=== PATIENT | male | born 1960 | race Caucasian/White ===

== ENCOUNTER 2025-05-16 07:55 | Observation (INO) ==
--- NOTE | 2025-05-16 08:04 | Emergency Department Note ---
Impression & Plan Lower back pain, Bilateral leg weakness, Abnormal magnetic resonance imaging of lumbar spine ED Provider Note NAME: MORE RANDOLPH AGE: 64 SEX: M : 1960 ARRIVES VIA: Walk-In INFORMANT: [Patient] ED PROVIDER(S): [Chava Ambriz MD] CHIEF COMPLAINT: Back pain HISTORY OF PRESENT ILLNESS: The patient is a 64-year-old male with 4 weeks of back pain. He complained of weakness and numbness in his legs and radiation of pain down his legs. He had fallen a few times. The patient was seen yesterday in the ED and workup did demonstrate possible lumbar bony metastases. No large disc herniation seen, no severe spinal stenosis by MRI. Admission to the hospital for further workup was advised however, the patient did refuse to stay. He asked for discharge home. He planned on returning today to hopefully see the spinal surgeon as the spinal surgeon was doing his morning rounds. No new complaints or changing complaints today. He is using his walker given yesterday to help with ambulation. PMHx/PSHx/Social Hx: See Below PHYSICAL EXAM: GENERAL: Patient is in no acute distress. HEENT: No acute trauma, normocephalic atraumatic, mucous membranes moist, no nasal congestion. NECK: No stridor, no adenopathy, no meningismus, trachea is midline. LUNGS: Clear to auscultation bilaterally, no wheeze, no rhonchi, breath sounds equal. HEART: Without murmurs gallops or rubs, regular rate and rhythm. ABDOMEN: Soft, nontender, no peritonitis. EXTREMITIES: No cyanosis, full range of motion of all the joints without pain or difficulty. NEUROLOGIC: Oriented x 3. There are 2/4 patellar and Achilles reflexes bilaterally. His great toe dorsiflexion is intact and strong bilaterally. The plantarflexion of both feet is strong and intact bilaterally. SKIN: No jaundice, no diaphoresis. DIFFERENTIAL DIAGNOSIS: Lumbar strain, malignancy, disc herniation, cauda equina syndrome, spinal stenosis, among others. EMERGENCY DEPARTMENT PROCEDURES: MEDICAL DECISION MAKING: The patient presents for evaluation because of ongoing back pain, leg weakness and numbness down his legs. He was seen yesterday and his MRI did not show any focal disc disease or area of nerve impingement. Admission for further workup was recommended however, the patient chose discharge to return today to see the spinal surgeon in the ED. Spinal surgery was consulted and did see the patient in the ED. After review of the MRI, there was concern that there may be a more superior lesion in the area of T10 of the thoracic spine. Additional MRI imaging was recommended and admission was again recommended. The patient did consent to a hospital stay and further workup. I did speak with the patient and his family, I did speak with case management. The on-call hospitalist was consulted. An MRI of the thoracic spine was ordered, results pending. Prior/Outside records/notes reviewed: Yesterday's ED note describing his presentation, findings and MRI results. Imaging/x-ray results per my interpretation: Chronic Medical/Social conditions affecting care: None Care/Management discussed with: Spinal surgery-Dr. Delgadillo. Case management and the on-call hospitalist Level of care consideration(s): After review of the information above and other included data: --I believe the patient requires escalation of care to admission DISPOSITION: Admission Past Med/Surg History Problem List (Updated 05/18/25 @ 15:02 by Chava Ambriz MD) Abnormal magnetic resonance imaging of lumbar spine (Acute) Bilateral leg weakness (Acute) Lower back pain (Acute) Prostate cancer Lesion of thoracic spine region Abnormal magnetic resonance imaging of lumbar spine (Acute) Fall (Acute) Bilateral leg weakness (Acute) Lower back pain (Acute) Medical History High cholesterol Social History Smoking Status: Current every day smoker Tobacco Type: Cigarettes Do You Dip or Chew Tobacco: No; Hx Alcohol Use: No Hx Substance Use: No Preferred Language: Occitan Communication Ability: Effective Legal Writing Professor Required: No Beliefs That Will Affect Care: None Current Living Situation: Spouse Feels Safe at Home: Yes Assistive Devices: Glasses and Walker Allergies Allergies Allergy/AdvReac Type Severity Reaction Status Date / Time No Known Allergies Allergy Verified 05/15/25 13:16 Home Meds Home Medications Medication Instructions Recorded Confirmed aspirin 81 mg tablet,delayed 81 mg PO DAILY 06/24/19 05/16/25 release atorvastatin 40 mg tablet 40 mg PO DAILY 06/24/19 05/16/25 Results & Data (ED) Vital Signs Vital Signs - 24 hr 05/16/25 07:57 Temperature 36.5 C Temperature Source Temporal Artery Scan Pulse Rate 69 Respiratory Rate 18 Respiratory Effort / Characteristics Non-Labored Spontaneous Respiratory Depth Normal Blood Pressure 101/66 Blood Pressure Mean 77 Blood Pressure Position Sitting Pulse Oximetry 100 Oxygen Delivery Method Room Air Sepsis Recent Fever Within 48 Hours No Sepsis New/Unexplained Change in Mental Status No Sepsis Action Taken by Nursing No Action Required Home Medications Current Medication List: was personally reviewed by me Laboratory Data 05/17/25 07:39 05/17/25 07:39 Administered Medications Discontinued Medications Gadobutrol (Gadobutrol 30ml Vial) 7 ml IV ONCE ONE Stop: 05/16/25 11:52 Last Admin: 05/16/25 11:52 Dose: 7 ml Documented By: CALEB Sodium Chloride (Nss) 1,000 mls @ 125 mls/hr IV .Q8H ANN Stop: 05/17/25 10:59 Last Infusion: 05/16/25 21:06 Dose: Infused Documented By: Admin: 05/16/25 21:05 Dose: Not Given Documented By: Admin: 05/16/25 12:47 Dose: 125 mls/hr Documented By: TNK Ioversol (Optiray 320 100ml) 92 ml IV ONCE ONE Stop: 05/16/25 15:43 Last Admin: 05/16/25 15:42 Dose: 92 ml Documented By: EDK Imaging Data Radiologist's Impression: Noncontrast lumbar MRI performed on 05/15/2025: Findings: There is 2 mm of retrolisthesis at L1-2 and L5-S1. There is scoliosis. The remainder of the lumbar vertebrae are in normal alignment. There are degenerative endplate changes at L4-5 and L5-S1 and to a lesser extent at other levels. There are numerous osseous lesions of high T2 and low T1 signal intensity, most likely due to metastatic disease. There is associated expansion of the T10 vertebral body. No fracture is identified. There is no definite sign of infection. There is no sign of acute ligamentous injury. The conus medullaris appears normal, terminating at the level of T12-L1. At L1-L2, there is a disc bulge without spinal stenosis. There is left greater than right neural foramen narrowing that may affect the left L1 nerve root At L2-L3, there is mild spinal stenosis due to a disc bulge. There is no visible compression of the traversing nerve roots. There is left greater than right neural foramen narrowing that may affect the exiting L2 nerve roots At L3-L4, there is spinal stenosis due to a disc bulge. The traversing L4 nerve roots are contacted. There is bilateral neural foramen narrowing that may affect the exiting L3 nerve roots At L4-L5, there is mild spinal stenosis due to a disc bulge and a right subarticular disc protrusion that contacts the right L5 nerve root. There is right greater than the left neural foramen narrowing that may affect the right L4 nerve root At L5-S1, there is a disc bulge without spinal stenosis. There is bilateral neural foramen narrowing that may affect the exiting L5 nerve roots. Impression: 1. Numerous osseous lesions, most likely due to metastatic disease 2. Scoliosis 3. Mild retrolisthesis at L1-2 and L5-S1 4. Spinal stenosis at L3-4, which may affect the traversing L4 nerve roots 5. Spinal stenosis at L4-5 with a disc protrusion that contacts the right L5 nerve root 6. Mild spinal stenosis at L2-3, without compression of the traversing nerve roots 7. Neural foramen narrowing from L1-2 through L5-S1, which may affect the exiting nerve roots 8. No sign of fracture or ligamentous injury Discharge Plan Visit Data Chief Complaint: Back Injury/Pain Stated Complaint: SEE THE DOC BACK PAIN ED Provider: Chava Ambriz Discharge Problem: Lower back pain, Bilateral leg weakness, Abnormal magnetic resonance imaging of lumbar spine Patient Disposition: Admitted As Inpatient Condition: Fair Discharge Instructions Interventions: ED Discharge Assessment Last Done: 05/16/25 13:49 Discharge Problem: Lower back pain Qualifiers: Chronicity: unspecified Back pain laterality: midline Sciatica presence: with sciatica Sciatica laterality: bilateral sciatica Qualified Code(s): M54.41 - Lumbago with sciatica, right side; M54.42 - Lumbago with sciatica, left side
[2025-05-16] MEDS ORDERED: HYDROmorphone INJ 0.5 MG/0.5 ML SYR IV PRN (10:48)
--- NOTE | 2025-05-16 10:48 | History & Physical Report ---
Date of Service May 16, 2025 Assessment & Plan (1) Abnormal magnetic resonance imaging of lumbar spine: Plan: 4 weeks of back pain in total with increasing pain 2 weeks associated with radiation of pain to the feet and decrease in ambulation MRI showed numerous osseous less than likely metastatic Multilevel spinal stenosis Differential could be metastatic disease and we will get MRI of the thoracic spine with and without contrast and further testing to find out the primary source Appreciate orthospine input and recommendation Will get CT of the chest and CT of the abdomen pelvis with and without contrast and blood test directing towards finding the cause of primary cancer Will give intravenous pain medications as well as oral As per orthospine if the patient needs any sort of surgical maneuver most likely that should be done in a tertiary care center facility (2) Fall: Plan: Has been falling recently with chest pain and fell x 3 times on Saturday due to back pain and instability in walking (3) Lower back pain: Plan: As above (4) High cholesterol: Plan: Has been on statin and hold off medicine for now Tobacco abuse Strongly advised to quit smoking Counseling will be provided DVT prophylaxis SCDs for now CODE STATUS Full History of Present Illness Chief Complaint: Increasing back pain with numbness involving the legs and feet for the last 2 weeks Primary Care Provider: Laverne Stewart MD He is a 64 years old male with significant past medical history of hyperlipide tevin has been on statin and has been complaining of left pain started initially about 4 weeks before. She has been to chiropractor for that and has had manipulation and also received prednisone to control the pain. For the last 2 weeks the pain has been worse that he has been having problem with ambulation and at times he has to use walker to ambulate. The pain has been in the lower back and sometimes radiates to the legs and he cannot feel it feet in the lower leg and recently has had occasional issues with urination. He denies any significant weakness involving the legs. He was seen in the ER yesterday and has had a lumbar spine MRI which showed multiple lesions involving the spine and he did not want to stay in the hospital. His pain is worse today and he is back with increasing pain but no other new symptoms. He is a smoker and continues to smoke till now. He denies any numbness or tingling involving the upper extremities and he again does not have any urine and/or bowel problems. His examination did not show any localized tenderness at the back and minimal decrease in power involving the legs on both sides. He was seen by orthospine in the emergency room and will have further testing to find out the cause for the spinal lesions. Allergies Allergy/AdvReac Type Severity Reaction Status Date / Time No Known Allergies Allergy Verified 05/15/25 13:16 Home Medications Medication Instructions Recorded Confirmed Type aspirin 81 mg tablet,delayed 81 mg PO DAILY 06/24/19 05/16/25 History release atorvastatin 40 mg tablet 40 mg PO DAILY 06/24/19 05/16/25 History Past Med/Surg History Problem List Abnormal magnetic resonance imaging of lumbar spine (Acute) Fall (Acute) Bilateral leg weakness (Acute) Lower back pain (Acute) Medical History High cholesterol Social History Smoking Status: Current every day smoker Tobacco Type: Cigarettes Preferred Language: Pashto Feels Safe at Home: Yes Review of Systems Review of Systems: All systems reviewed and are unremarkable except as noted below Physical Exam Physical Exam: Sitting on a chair and in distress due to ongoing back pain Constitutional: + ill appearing and average body habitus Eyes: PERRL, conjunctivae normal, anicteric sclerae ENMT: external ear and nose normal, oropharynx normal Neck: trachea midline, no thyromegaly Respiratory: no respiratory distress Auscultation: lungs clear to auscultation bilaterally Cardiovascular: Rate/Rhythm: regular rate and regular rhythm; not tachycardic Heart Sounds: normal S1 and normal S2; no murmur Extremities: no edema Gastrointestinal (Abdomen): Inspection/Auscultation: normal bowel sounds; abdomen not distended Percussion/Palpation: abdomen soft; abdomen nontender Musculoskeletal: No acute arthritis involving any of the joint. No tender spots in the spine Neurologic: normal touch/pain/proprioception and moves all extremities; no focal motor deficits Lymphatic: no cervical or axillary lymphadenopathy Results & Data Results & Data Vital Signs (Past 12 Hours) Vital Signs Temp Pulse Resp BP Pulse Ox O2 Del Method 05/16/25 07:57 36.5 C 69 18 101/66 100 Room Air Code Status & VTE Plan VTE Prophylaxis Plan VTE Prophylaxis will be ordered: Yes (2) Fall Encounter type: initial encounter Qualified Code(s): W19.XXXA - Unspecified fall, initial encounter (3) Lower back pain Back pain laterality: midline Chronicity: unspecified Sciatica laterality: bilateral sciatica Sciatica presence: with sciatica Qualified Code(s): M54.41 - Lumbago with sciatica, right side; M54.42 - Lumbago with sciatica, left side
--- NOTE | 2025-05-16 10:57 | Orthopedic Consultation ---
Date of Service May 16, 2025 Assessment & Plan (1) Lower back pain: (2) Bilateral leg weakness: (3) Abnormal magnetic resonance imaging of lumbar spine: (4) Lesion of thoracic spine region: History of Present Illness Reason for Consultation: Low back pain, metastatic lesions noted on MRI. Requesting Physician: . 64 years old male with significant past medical history of hyperlipidemia has been on statin and has been complaining of left pain started initially about 4 weeks before. She has been to chiropractor for that and has had manipulation and also received prednisone to control the pain. For the last 2 weeks the pain has been worse that he has been having problem with ambulation and at times he has to use walker to ambulate. The pain has been in the lower back and sometimes radiates to the legs and he cannot feel it feet in the lower leg and recently has had occasional issues with urination. He denies any significant weakness involving the legs. He was seen in the ER yesterday and has had a lumbar spine MRI which showed multiple lesions involving the spine and he did not want to stay in the hospital. His pain is worse today and he is back with increasing pain but no other new symptoms. He is a smoker and continues to smoke till now. He denies any numbness or tingling involving the upper extremities and he again does not have any urine and/or bowel problems. His examination did not show any localized tenderness at the back and minimal decrease in power involving the legs on both sides. He was seen by orthospine in the emergency room and will have further testing to find out the cause for the spinal lesions. 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 He relates his main pain is in the lower lumbosacral region, and he will have numbness which will radiate just to the hip region on either side but not noticing specific radicular symptoms in the lower extremities. Examination reveals the patient to be nontender to palpation over the thoracic and cervical spine, no pain noted also on palpation of the spinous processes at the thoracolumbar junction, main area of pain indicated lumbosacral junction but minimally reproduced with any type of palpation. Patient had what I thought was symmetric 5/5 strength for EHL, ankle plantar dorsiflexion, knee flexion extension strength, hip flexion extension strength. Reflexes were symmetric at 2/4 for both knees, 1/4 for the left ankle, trace for the right ankle. Negative straight leg raise except for limited amount of low back pain. MRI images of the lumbar spine from May 15, 2025 Clinical History: Pain and numbness after falls Technique: Sagittal and axial T1 and T2-weighted magnetic resonance images were obtained of the lumbar spine without gadolinium contrast. Findings: There is 2 mm of retrolisthesis at L1-2 and L5-S1. There is scoliosis. The remainder of the lumbar vertebrae are in normal alignment. There are degenerative endplate changes at L4-5 and L5-S1 and to a lesser extent at other levels. There are numerous osseous lesions of high T2 and low T1 signal intensity, most likely due to metastatic disease. There is associated expansion of the T10 vertebral body. No fracture is identified. There is no definite sign of infection. There is no sign of acute ligamentous injury. The conus medullaris appears normal, terminating at the level of T12-L1. At L1-L2, there is a disc bulge without spinal stenosis. There is left greater than right neural foramen narrowing that may affect the left L1 nerve root At L2-L3, there is mild spinal stenosis due to a disc bulge. There is no visible compression of the traversing nerve roots. There is left greater than right neural foramen narrowing that may affect the exiting L2 nerve roots At L3-L4, there is spinal stenosis due to a disc bulge. The traversing L4 nerve roots are contacted. There is bilateral neural foramen narrowing that may affect the exiting L3 nerve roots At L4-L5, there is mild spinal stenosis due to a disc bulge and a right subarticular disc protrusion that contacts the right L5 nerve root. There is right greater than the left neural foramen narrowing that may affect the right L4 nerve root At L5-S1, there is a disc bulge without spinal stenosis. There is bilateral neural foramen narrowing that may affect the exiting L5 nerve roots. Impression: 1. Numerous osseous lesions, most likely due to metastatic disease 2. Scoliosis 3. Mild retrolisthesis at L1-2 and L5-S1 4. Spinal stenosis at L3-4, which may affect the traversing L4 nerve roots 5. Spinal stenosis at L4-5 with a disc protrusion that contacts the right L5 nerve root 6. Mild spinal stenosis at L2-3, without compression of the traversing nerve roots 7. Neural foramen narrowing from L1-2 through L5-S1, which may affect the exiting nerve roots 8. No sign of fracture or ligamentous injury Reviewed MRI images lumbar spine from May 15, 2025, no previous imaging available, this is my separate interpretation, this reveals the degenerative changes as noted, no high-grade areas of stenosis, some foraminal narrowing evident. Numerous lesions indicating metastatic lesions present, of note is at T10 there is spinal stenosis with what may be even cord changes, not adequately evaluated with this study. Impression: 1 month history of low back pain initially mechanical in nature, but then developing neural compressive symptoms in the lower extremities, mostly low back pain is the main complaint. MRI revealing numerous lesions suspicious of metastatic process and also what appears to be significant metastatic involvement involving T10 not adequately evaluated at this point. Recommendations: [facility] the patient needs additional imaging, thoracic and cervical MRIs with and without contrast, also CT scan imaging. I related that I think there is developing significant stenosis at T10 at the least, and this is causing the lower extremity symptoms. Diagnosis of metastatic lesions imperative along with the appropriate treatment relative to the developing process involving the T10 level at least, this may require surgical intervention at some point. Will continue to follow relative to the upcoming evaluations for diagnosing the primary. Allergies Allergy/AdvReac Type Severity Reaction Status Date / Time No Known Allergies Allergy Verified 05/15/25 13:16 Home Medications Medication Instructions Recorded Confirmed Type aspirin 81 mg tablet,delayed 81 mg PO DAILY 06/24/19 05/16/25 History release atorvastatin 40 mg tablet 40 mg PO DAILY 06/24/19 05/16/25 History Past Med/Surg History Problem List (Updated 05/16/25 @ 11:06 by George Delgadillo MD) Lesion of thoracic spine region Abnormal magnetic resonance imaging of lumbar spine (Acute) Fall (Acute) Bilateral leg weakness (Acute) Lower back pain (Acute) Medical History High cholesterol Social History Smoking Status: Current every day smoker Tobacco Type: Cigarettes Preferred Language: Latvian Feels Safe at Home: Yes Review of Systems All systems reviewed & are unremarkable except as noted in HPI & below. Physical Exam . Results & Data Results & Data Laboratory Results . Diagnostic Findings . PG Care Time/CCT Total # of Minutes Spent Total Time Spent with Patient: Total time spent is greater than 50% in coordination of care (as documented) at patient's floor/unit and/or counseling patient: Coding Level of Care Code 38060 IN/OBS CONSULT LVL 4,60M Diagnoses Lower back pain M54.41; M54.42 Back pain laterality: midline Chronicity: unspecified Sciatica laterality: bilateral sciatica Sciatica presence: with sciatica Bilateral leg weakness R29.898 Abnormal magnetic resonance imaging of lumbar spine R93.7 Lesion of thoracic spine region M89.9 (1) Lower back pain Back pain laterality: midline Chronicity: unspecified Sciatica laterality: bilateral sciatica Sciatica presence: with sciatica Qualified Code(s): M54.41 - Lumbago with sciatica, right side; M54.42 - Lumbago with sciatica, left side
[2025-05-16 11:33] LABS: Alanine Aminotransferase 7.0 U/L (7-52); Albumin Globulin Ratio 1.2 (0.9-2); Alkaline Phosphatase 225.0 U/L (34-104); Anion Gap 7.0 (3-11); Bilirubin,Total 0.6 mg/dl (0.2-1.0); Blood Urea Nitrogen 20.0 mg/dl (6-23); Calcium 9.5 mg/dl (8.6-10.3); Carbon Dioxide 29.0 mmol/L (21-32); Chloride 100.0 mmol/L (98-107); Creatinine Clr Calc Pharmacy 83.0 ml/min; Globulin 3.3 gm/dl (2.5-4.0); Glucose 103.0 mg/dl (70-99(Fasting)); Potassium 3.7 mmol/L (3.5-5.1); Sodium 136.0 mmol/L (136-145); Total Protein 7.3 gm/dl (6.0-8.3)
[2025-05-16 11:43] LABS: Prostate SpecificAg Diagnostic 52.903 ng/ml (0-4)
--- NOTE | 2025-05-16 11:43 | XRay Report ---
XR chest 2V PA/lateral CLINICAL HISTORY: r/o yuki COMPARISON STUDY: None FINDINGS: Heart size and pulmonary vasculature are normal. No consolidation or pleural effusion seen. No pneumothorax. IMPRESSION: No acute findings. ACT 112: Negative or not required by law. Electronically signed by: Faraz Devlin M.D. 05/16/2025 11:41 AM
[2025-05-16 11:46] LABS: Thyroid Stimulating Hormone 1.746 uIu/ml (0.300-4.500)
[2025-05-16] MEDS: GADOBUTROL 30ML VIAL IV ONE (11:52)
--- NOTE | 2025-05-16 12:23 | Magnetic Resonance Report ---
MR thoracic spine wo/w con CLINICAL HISTORY: back and leg pain, mets COMPARISON STUDY: Lumbar spine of 05/15/2025 FINDINGS: There is abnormal low T1 and T2 signal and enhancement at the C7, T9, T10, and T11 vertebra l bodies consistent with osseous metastatic disease. Thoracic spinal cord has normal signal and conto ur with no abnormal enhancement. No acute fracture or subluxation seen. The mass occupying the T10 vertebral body extends beyond the borders of the vertebral body and causes moderate central canal narrowing with complete effacement of the thecal sac and mild cord compressio n at that level. There is also moderate bilateral neural foraminal narrowing due to the mass at that level. No other significant central canal or neural foraminal narrowing seen at the thoracic spine. IMPRESSION: 1. Osseous metastatic disease as described. 2. Vertebral body mass at T10 causes central canal narrowing with mild cord compression at that level . ACT 112: Negative or not required by law. Electronically signed by: Faraz Devlin M.D. 05/16/2025 12:20 PM
[2025-05-16] MEDS: SODIUM CHLORIDE 0.9% 1,000 ML IV SCH (12:47)
[2025-05-16] MEDS: OPTIRAY 320 100ml IV ONE (15:42)
--- NOTE | 2025-05-16 16:41 | CT Scan Report ---
Exam: CT chest diagnostic with contrast. Reason for exam: Chest pain Previous studies: None FINDINGS: Both lung zones appear clear and well aerated this time. There is a 6.5 mm nodule centrally in the left upper lobe (image #15 of series 4) on the same image there is a 5.3 mm noncalcified nodule along the posterior aspect of the oblique fissure. There is a 8.0 mm pleural-based nodule along the anterior aspect of the right middle lobe (image #41 of series 4). No other acute infiltrate or edema is seen. No pleural effusion or pneumothorax is noted. No significant abnormal hilar or mediastinal mass or adenopathy is seen. Moderate coronary artery calcifications in the right and left coronary systems present. There is a sclerotic without significant collapse at the T10 level. No other definite active bony process is seen. IMPRESSION: 1. Subcentimeter bilateral pulmonary nodules. Origin is uncertain. No previous studies available to ensure stability. Further evaluation with PET/CT could be obtained at this time although they remain subcentimeter in size. Alternatively, follow up with repeat CT scan in no greater than 3 months (August 2025) could be obtained to ensure stability and evaluate growth of these nodules. Should they so significant growth, but the diagnosis will be indicated. 2. Sclerotic vertebrae at T10 of unknown origin. Correlation with the patient's history recommended. This could be further evaluated with radioisotope bone scan. 3. Moderate coronary artery calcification. Electronically signed by Faraz Meneses 05-16-2025 4:41 PM
--- NOTE | 2025-05-16 16:47 | CT Scan Report ---
Exam: CT abdomen/pelvis with oral and IV contrast. Reason for exam: Abdominal pain. Previous studies: None. FINDINGS: Lower lung zones remain essentially clear. Extensive coronary artery calcifications are present. Several low-attenuation sharply demarcated lesion seen in the right hepatic lobe, the largest of which is 8 mm. No biliary tract dilatation seen. Pancreas and spleen are unremarkable. Hiatal hernia is seen projecting into the lower mediastinum. Adrenal glands are unremarkable. Kidneys unremarkable. Vascular calcification but no aneurysm seen in the aorta. No evidence of bowel obstruction or free air. Diffusely increased. This is seen in the colon. Prostate is moderately enlarged and inhomogeneous. Small bilateral inguinal hernias containing fat only. Otherwise no pelvic mass, adenopathy or fluid is found. Multiple sclerotic vertebrae are present including L5, L4, L3 and T10. The collapse seen at this time. IMPRESSION: 1. Several subcentimeter low-attenuation lesions in the right hepatic lobe. These may represent multiple hepatic cysts. This would be better confirmed with ultrasound exam. 2. Diffuse colonic constipation without bowel obstruction. 3. Multiple blastic skeletal lesions which may indicate metastatic disease of unknown origin. Further evaluation with bone scan is recommended. Electronically signed by Faraz Meneses 05-16-2025 4:46 PM
[2025-05-17 08:04] LABS: Hematocrit (blood only) 39.7 % (42.0-52.0); Hemoglobin 13.9 g/dl (14.0-18.0); Mean Corpuscular Hemoglobin 29.1 pg (25.0-34.0); Mean Corpuscular Volume 83.1 fL (80.0-100.0); Platelet Count 204 K/uL (130-400); RDW Standard Deviation 37.8 fL (36.4-46.3); Red Blood Count 4.78 M/uL (4.70-6.10); White Blood Count 6.79 K/ul (4.8-10.8)
[2025-05-17 08:33] LABS: Alanine Aminotransferase 7.0 U/L (7-52); Albumin Globulin Ratio 1.5 (0.9-2); Alkaline Phosphatase 225.0 U/L (34-104); Anion Gap 6.0 (3-11); Bilirubin,Total 0.7 mg/dl (0.2-1.0); Blood Urea Nitrogen 18.0 mg/dl (6-23); Calcium 9.0 mg/dl (8.6-10.3); Carbon Dioxide 27.0 mmol/L (21-32); Chloride 103.0 mmol/L (98-107); Creatinine Clr Calc Pharmacy 85.2 ml/min; Globulin 2.5 gm/dl (2.5-4.0); Glucose 99.0 mg/dl (70-99(Fasting)); Magnesium 1.9 mg/dl (1.7-2.4); Potassium 3.9 mmol/L (3.5-5.1); Sodium 136.0 mmol/L (136-145); Total Protein 6.3 gm/dl (6.0-8.3)
--- NOTE | 2025-05-17 10:30 | Orthopedic Progress Note ---
Date of Service May 17, 2025 Assessment & Plan (1) Abnormal magnetic resonance imaging of lumbar spine: Continue coordinating with [facility] for patient to follow-up for further treatment. Further MR imaging with and without contrast of the thoracic and cervical spine are recommended. Patient is WBAT and can ambulate with assistance due to fear of falling. Continue DVT prophylaxis. Continue medications per primary team. (2) Lower back pain: (3) Bilateral leg weakness: Chad Curtis was seen at his bedside this morning. Patient is still experiencing pain in the low back as expected. Patient does not have new complaints today but is just curious of the next steps in the treatment plan. Patient states that he has been able to move around his room but is nervous to do so in fear of the pain returning and causing him to collapse. Review of Systems All systems reviewed & are unremarkable except as noted in HPI & below. Physical Exam Patient exam shows 64-year-old male sitting in the chair at bedside watching television. Results & Data Results & Data Laboratory Results Abnormal Lab Results 05/16/25 05/16/25 05/17/25 10:55 10:55 07:39 WBC 6.79 RBC 4.78 Hgb 13.9 L Hct 39.7 L MCV 83.1 MCH 29.1 MCHC 35.0 RDW Std Deviation 37.8 RDW Coeff of Jaylon 12.4 Plt Count 204 MPV 10.7 Sodium 136 136 Potassium 3.7 3.9 Chloride 100 103 Carbon Dioxide 29 27 Anion Gap 7 6 BUN 20 18 Creatinine 0.79 0.77 Est Cr Clr Drug Dosing 83.0 85.2 eGFR 97.98 98.74 BUN/Creatinine Ratio 25.3 H 23.4 H Glucose 103 H 99 Calcium 9.5 9.0 Phosphorus 3.3 Magnesium 1.9 Total Bilirubin 0.6 0.7 AST 11 L 10 L ALT 7 7 Alkaline Phosphatase 225 H 225 H Total Protein 7.3 6.3 Albumin 4.0 3.8 Globulin 3.3 2.5 Albumin/Globulin Ratio 1.2 1.5 Carcinoembryonic Ag 5.1 H Prostate Specific Ag 52.903 H 53.011 H Free PSA 5.65 H % Free PSA 10.7 TSH 1.746 Diagnostic Findings Thoracic Spine MRI 05/16/25 10:10 MR thoracic spine wo/w con CLINICAL HISTORY: back and leg pain, mets COMPARISON STUDY: Lumbar spine of 05/15/2025 FINDINGS: There is abnormal low T1 and T2 signal and enhancement at the C7, T9, T10, and T11 vertebral bodies consistent with osseous metastatic disease. Thoracic spinal cord has normal signal and contour with no abnormal enhancement. No acute fracture or subluxation seen. The mass occupying the T10 vertebral body extends beyond the borders of the vertebral body and causes moderate central canal narrowing with complete effacement of the thecal sac and mild cord compression at that level. There is also moderate bilateral neural foraminal narrowing due to the mass at that level. No other significant central canal or neural foraminal narrowing seen at the thoracic spine. IMPRESSION: 1. Osseous metastatic disease as described. 2. Vertebral body mass at T10 causes central canal narrowing with mild cord compression at that level. ACT 112: Negative or not required by law. Electronically signed by: Faraz Devlin M.D. 05/16/2025 12:20 PM Abdomen/Pelvis CT 05/16/25 10:26 Exam: CT abdomen/pelvis with oral and IV contrast. Reason for exam: Abdominal pain. Previous studies: None. FINDINGS: Lower lung zones remain essentially clear. Extensive coronary artery calcifications are present. Several low-attenuation sharply demarcated lesion seen in the right hepatic lobe, the largest of which is 8 mm. No biliary tract dilatation seen. Pancreas and spleen are unremarkable. Hiatal hernia is seen projecting into the lower mediastinum. Adrenal glands are unremarkable. Kidneys unremarkable. Vascular calcification but no aneurysm seen in the aorta. No evidence of bowel obstruction or free air. Diffusely increased. This is seen in the colon. Prostate is moderately enlarged and inhomogeneous. Small bilateral inguinal hernias containing fat only. Otherwise no pelvic mass, adenopathy or fluid is found. Multiple sclerotic vertebrae are present including L5, L4, L3 and T10. The collapse seen at this time. IMPRESSION: 1. Several subcentimeter low-attenuation lesions in the right hepatic lobe. These may represent multiple hepatic cysts. This would be better confirmed with ultrasound exam. 2. Diffuse colonic constipation without bowel obstruction. 3. Multiple blastic skeletal lesions which may indicate metastatic disease of unknown origin. Further evaluation with bone scan is recommended. Electronically signed by Faraz Meneses 05-16-2025 4:[address] 05/16/25 10:26 Exam: CT chest diagnostic with contrast. Reason for exam: Chest pain Previous studies: None FINDINGS: Both lung zones appear clear and well aerated this time. There is a 6.5 mm nodule centrally in the left upper lobe (image #15 of series 4) on the same image there is a 5.3 mm noncalcified nodule along the posterior aspect of the oblique fissure. There is a 8.0 mm pleural-based nodule along the anterior aspect of the right middle lobe (image #41 of series 4). No other acute infiltrate or edema is seen. No pleural effusion or pneumothorax is noted. No significant abnormal hilar or mediastinal mass or adenopathy is seen. Moderate coronary artery calcifications in the right and left coronary systems present. There is a sclerotic without significant collapse at the T10 level. No other definite active bony process is seen. IMPRESSION: 1. Subcentimeter bilateral pulmonary nodules. Origin is uncertain. No previous studies available to ensure stability. Further evaluation with PET/CT could be obtained at this time although they remain subcentimeter in size. Alternatively, follow up with repeat CT scan in no greater than 3 months (August 2025) could be obtained to ensure stability and evaluate growth of these nodules. Should they so significant growth, but the diagnosis will be indicated. 2. Sclerotic vertebrae at T10 of unknown origin. Correlation with the patient's history recommended. This could be further evaluated with radioisotope bone scan. 3. Moderate coronary artery calcification. Electronically signed by Faraz Meneses 05-16-2025 4:41 PM Chest X-Ray 05/16/25 10:48 XR chest 2V PA/lateral CLINICAL HISTORY: r/o yuki COMPARISON STUDY: None FINDINGS: Heart size and pulmonary vasculature are normal. No consolidation or pleural effusion seen. No pneumothorax. IMPRESSION: No acute findings. ACT 112: Negative or not required by law. Electronically signed by: Faraz Devlin M.D. 05/16/2025 11:41 AM PG Care Time/CCT Total # of Minutes Spent Total Time Spent with Patient: Total time spent is greater than 50% in coordination of care (as documented) at patient's floor/unit and/or counseling patient: Coding Level of Care Code 66739 SUB INP/OBS CARE 09/26MIN Diagnoses Abnormal magnetic resonance imaging of lumbar spine R93.7 Lower back pain M54.41; M54.42 Back pain laterality: midline Chronicity: unspecified Sciatica laterality: bilateral sciatica Sciatica presence: with sciatica Bilateral leg weakness R29.898 (2) Lower back pain Back pain laterality: midline Chronicity: unspecified Sciatica laterality: bilateral sciatica Sciatica presence: with sciatica Qualified Code(s): M54.41 - Lumbago with sciatica, right side; M54.42 - Lumbago with sciatica, left side
--- NOTE | 2025-05-17 11:00 | Hospitalist Progress Note ---
Date of Service May 17, 2025 Assessment & Plan (1) Abnormal magnetic resonance imaging of lumbar spine: Plan: Per admitting provider w/ addendum 4 weeks of back pain in total with increasing pain 2 weeks associated with radiation of pain to the feet and decrease in ambulation MRI showed numerous osseous lesions likely metastatic Multilevel spinal stenosis Likely metastatic disease and we will get MRI of the thoracic spine with and without contrast and further testing to find out the primary source Appreciate orthospine input and recommendation Will get CT of the chest and CT of the abdomen pelvis with and without contrast and blood test directing towards finding the cause of primary cancer Will give intravenous pain medications as well as oral As per orthospine if the patient needs any sort of surgical maneuver most likely that should be done in a tertiary care center facility Likely prostate cancer w/ metastases to spine PSA elevated at 53 Urology, oncology consulted (2) Fall: Plan: Has been falling recently, due to back pain and instability in walking Pt says he has a walker now and he is stable w/ walker. In his room now ambulating without a walker (3) Lower back pain: Plan: As above (4) High cholesterol: Plan: Has been on statin Tobacco abuse Strongly advised to quit smoking Counseling provided Admission and Anticipated Discharge Date Admission Date: May 16, 2025 Subjective Pt seen in follow up of back pain, abnormal spine mri / c/w lesions likely metastases PSA also elevated - urology consulted, heme/onc consulted Pt sitting in chair in NAD, denies any fever, chills, chest pain, shortness of breath, abd/pain, n/v Says he wants to be discharged today and that he can't stay another night Pt was seen by urology Contacted Dr. Arriaga - oncology - she was able to speak with the pt over the phone. However, he still insists on leaving and wants to have any work up done as outpt Review of Systems Review of Systems: All systems reviewed & are unremarkable except as noted in Subjective Physical Exam Physical Exam: Physical Exam: Constitutional: WD/WN M in NAD Eyes: PERRL, conjunctiva e normal, anicteri c sclerae ENMT: external ear and n ose normal Neck: supple Respiratory: no respiratory dis tress Auscultatio n: lungs clear to auscultation bilat erally Cardiovascular: Rate/Rhythm: regul ar rate and regula r rhythm; not tach ycardic Heart Zonia nds: normal S1 and normal S2; no mur mur Extremities: no edema Gastrointestinal ( Abdomen): Inspection/Auscult ation: normal ha l sounds; abdomen not distended Per cussion/Palpation: abdomen soft; abd omen nontender Musculoskeletal: moves extremities Neurologic: awake, alert, spee ch fluent, answers appropriately, mo ves all extremitie s Results & Data Results & Data Vital Signs (Past 12 Hours) Vital Signs Temp Pulse Pulse Resp BP Pulse Ox O2 Del Method 05/17/25 10:24 Room Air 05/17/25 08:22 36.7 C 74 18 94/65 L 96 Room Air 05/17/25 07:18 75 05/17/25 03:22 36.6 C 68 16 112/66 99 Room Air 05/17/25 01:00 Room Air 05/17/25 00:59 71 Laboratory Results 05/17/25 05/16/25 05/16/25 Range/Units 07:39 10:55 10:55 WBC 6.79 (4.8-10.8) K/ul RBC 4.78 (4.70-6.10) M/uL Hgb 13.9 L (14.0-18.0) g/dl Hct 39.7 L (42.0-52.0) % MCV 83.1 (80.0-100.0) fL MCH 29.1 (25.0-34.0) pg MCHC 35.0 (32.0-36.0) g/dL RDW Std Deviation 37.8 (36.4-46.3) fL RDW Coeff of Jaylon 12.4 (11.5-14.5) % Plt Count 204 (130-400) K/uL MPV 10.7 (9.4-12.4) fL Sodium 136 136 (136-145) mmol/L Potassium 3.9 3.7 (3.5-5.1) mmol/L Chloride 103 100 (98-107) mmol/L Carbon Dioxide 27 29 (21-32) mmol/L Anion Gap 6 7 (3-11) BUN 18 20 (6-23) mg/dl Creatinine 0.77 0.79 (0.6-1.4) mg/dl Est Cr Clr Drug Dosing 85.2 83.0 ml/min eGFR 98.74 97.98 BUN/Creatinine Ratio 23.4 H 25.3 H (10-20) Glucose 99 103 H (70-99(Fasting)) mg/dl Calcium 9.0 9.5 (8.6-10.3) mg/dl Phosphorus 3.3 (2.5-4.9) mg/dl Magnesium 1.9 (1.7-2.4) mg/dl Total Bilirubin 0.7 0.6 (0.2-1.0) mg/dl AST 10 L 11 L (13-39) U/L ALT 7 7 (7-52) U/L Alkaline Phosphatase 225 H 225 H (34-104) U/L Total Protein 6.3 7.3 (6.0-8.3) gm/dl Albumin 3.8 4.0 (3.4-5.0) gm/dl Globulin 2.5 3.3 (2.5-4.0) gm/dl Albumin/Globulin Ratio 1.5 1.2 (0.9-2) Carcinoembryonic Ag 5.1 H (0-2.5) ng/ml CA 19-9 Antigen Pending Prostate Specific Ag 53.011 H 52.903 H (0-4) ng/ml Free PSA 5.65 H (0-2.0) ng/ml % Free PSA 10.7 % TSH 1.746 (0.300-4.500) uIu/ml Medications Administered Current Inpatient Medications Hydromorphone HCl (Hydromorphone Inj 0.5 Mg/0.5 Ml Syr) 0.5 mg IV Q6H PRN PRN Reason: Pain Stop: 05/30/25 10:47 Oxycodone HCl (Oxycodone Hcl Ir 5 Mg Tab (Immediate Release)) 5 mg PO Q4H PRN PRN Reason: Pain Stop: 05/30/25 10:47 (2) Fall Encounter type: initial encounter Qualified Code(s): W19.XXXA - Unspecified fall, initial encounter (3) Lower back pain Back pain laterality: midline Chronicity: unspecified Sciatica laterality: bilateral sciatica Sciatica presence: with sciatica Qualified Code(s): M54.41 - Lumbago with sciatica, right side; M54.42 - Lumbago with sciatica, left side
--- NOTE | 2025-05-17 12:04 | Urology Consultation ---
Date of Consultation May 17, 2025 Assessment & Plan (1) Prostate cancer: Suspected metastatic prostate cancer PSA 53 with visible evidence of suspected blastic metastatic disease The PSA and imaging imply this diagnosis and I discussed it with the patient His exam itself of the prostate is relatively unremarkable but this is not particularly unusual in this setting Given his highly symptomatic status, I think an oncology and potentially radiation oncology consultation while inpatient would be appropriate We did discuss that with current treatments his prognosis can actually be decent with management of the disease achieved with medical treatment/ADT plus or minus other targeted therapies If necessary, a biopsy can be performed of the prostate as an outpatient Alternatively, biopsy of the spine lesion by interventional radiology may be as or more fruitful and could be performed as an inpatient We will defer starting any treatment until he sees medical oncology History of Present Illness Attending Physician: Isaac Denise MD History of Present Illness 64-year-old gentleman who has not been an active utilizer of the healthcare system who has developed significant and limiting back pain This prompted his current ER visit He had a CT on arrival which shows suspected blastic metastatic disease involving the spine He had a PSA of 53he has not had any prior PSA checks He is uncertain about any family history of prostate cancer reports the majority of his family does not utilize healthcare Has been urinating okay CT does not seem to show any drastic abnormalities of his prostateI personally reviewed all the imaging as well as all of his lab work No hydronephrosis or other renal abnormality visualized Allergies Allergy/AdvReac Type Severity Reaction Status Date / Time No Known Allergies Allergy Verified 05/15/25 13:16 Home Medications Medication Instructions Recorded Confirmed Type aspirin 81 mg tablet,delayed 81 mg PO DAILY 06/24/19 05/16/25 History release atorvastatin 40 mg tablet 40 mg PO DAILY 06/24/19 05/16/25 History Patient History Medical History High cholesterol Social History Smoking Status: Current every day smoker Tobacco Type: Cigarettes Do You Dip or Chew Tobacco: No; Hx Alcohol Use: No Hx Substance Use: No Preferred Language: Croatian Chro Required: No Beliefs That Will Affect Care: None Current Living Situation: Spouse Feels Safe at Home: Yes Assistive Devices: Glasses and Walker Review of Systems Review of Systems: All systems reviewed and are unremarkable except as noted below Physical Exam Physical Exam: Comfortable appearing woman in chair Very limited with mobility as he attempts to stand and leading into the bed for prostate exam Prostate itself is rectally relatively unremarkable No large nodules or abnormalities appreciated Constitutional: well developed and well nourished Respiratory: no respiratory distress Cardiovascular: Extremities: no pedal edema Gastrointestinal (Abdomen): Inspection/Auscultation: abdomen normal to inspection Results & Data Vital Signs (Past 12 Hours) Vital Signs Temp Pulse Pulse Resp BP Pulse Ox O2 Del Method 05/17/25 11:29 36.6 C 69 18 109/73 97 Room Air 05/17/25 10:24 Room Air 05/17/25 08:22 36.7 C 74 18 94/65 L 96 Room Air 05/17/25 07:18 75 05/17/25 03:22 36.6 C 68 16 112/66 99 Room Air 05/17/25 01:00 Room Air 05/17/25 00:59 71 PG Care Time/CCT Total # of Minutes Spent Total Time Spent with Patient: Total time spent is greater than 50% in coordination of care (as documented) at patient's floor/unit and/or counseling patient: Coding Level of Care Code 52081 INT INP/OBS CARE 2/55MIN Diagnoses Prostate cancer C61
--- NOTE | 2025-05-17 14:20 | Discharge Summary ---
Date of Service May 17, 2025 Admission HPI Per Admitting Provider He is a 64 years old male with significant past medical history of hyperlipidemia has been on statin and has been complaining of left pain started initially about 4 weeks before. She has been to chiropractor for that and has had manipulation and also received prednisone to control the pain. For the last 2 weeks the pain has been worse that he has been having problem with ambulation and at times he has to use walker to ambulate. The pain has been in the lower back and sometimes radiates to the legs and he cannot feel it feet in the lower leg and recently has had occasional issues with urination. He denies any significant weakness involving the legs. He was seen in the ER yesterday and has had a lumbar spine MRI which showed multiple lesions involving the spine and he did not want to stay in the hospital. His pain is worse today and he is back with increasing pain but no other new symptoms. He is a smoker and continues to smoke till now. He denies any numbness or tingling involving the upper extremities and he again does not have any urine and/or bowel problems. His examination did not show any localized tenderness at the back and minimal decrease in power involving the legs on both sides. He was seen by orthospine in the emergency room and will have further testing to find out the cause for the spinal lesions. Admission Exam Per Admitting Provider Physical Exam: Sitting on a chair and in distress due to ongoing back pain Constitutional: + ill appearing and average body habitus Eyes: PERRL, conjunctivae normal, anicteric sclerae ENMT: external ear and nose normal, oropharynx normal Neck: trachea midline, no thyromegaly Respiratory: no respiratory distress Auscultation: lungs clear to auscultation bilaterally Cardiovascular: Rate/Rhythm: regular rate and regular rhythm; not tachycardic Heart Sounds: normal S1 and normal S2; no murmur Extremities: no edema Gastrointestinal (Abdomen): Inspection/Auscultation: normal bowel sounds; abdomen not distended Percussion/Palpation: abdomen soft; abdomen nontender Musculoskeletal: No acute arthritis involving any of the joint. No tender spots in the spine Neurologic: normal touch/pain/proprioception and moves all extremities; no focal motor deficits Lymphatic: no cervical or axillary lymphadenopathy Principal Diagnosis Back pain secondary to metastatic lesions in spine - possibly from prostate cancer - diagnosis still to be fully investigated Discharge Exam Physical Exam: Constitutional: WD/WN M in NAD Eyes: PERRL, conjunctivae normal, anicteric sclerae ENMT: external ear and nose normal Neck: supple Respiratory: no respiratory distress Auscultation: lungs clear to auscultation bilaterally Cardiovascular: Rate/Rhythm: regular rate and regular rhythm; not tachycardic Heart Sounds: normal S1 and normal S2; no murmur Extremities: no edema Gastrointestinal (Abdomen): Inspection/Auscultation: normal bowel sounds; abdomen not distended Percussion/Palpation: abdomen soft; abdomen nontender Musculoskeletal: moves extremities Neurologic: awake, alert, speech fluent, answers appropriately, moves all extremities Discharge Data Allergies Allergy/AdvReac Type Severity Reaction Status Date / Time No Known Allergies Allergy Verified 05/15/25 13:16 Consultations 05/16/25 09:54 ED Decision to Admit Stat 05/17/25 08:15 Consult Urology Routine 05/17/25 08:17 Consult Oncology Routine Ordered Studies 05/16/25 10:10 MR thoracic spine wo/w con Stat FINDINGS: There is abnormal low T1 and T2 signal and enhancement at the C7, T9, T10, and T11 vertebral bodies consistent with osseous metastatic disease. T horacic spinal cord has normal signal and contour with no abnormal enhancement. No acute fracture or subluxation seen. The mass occupying the T10 vertebral body extends beyond the borders of the vert ebral body and causes moderate central canal narrowing with complete effacement of the thecal sac and mild cord compression at that level. There is also moderate bilateral neural foraminal narrowing due to the mass at that level. No other significant central canal or neural foraminal narrowing seen at the thoracic spine. IMPRESSION: 1. Osseous metastatic disease as described. 2. Vertebral body mass at T10 causes central canal narrowing with mild cord compression at that level. 05/16/25 10:26 CT Abd and Pelvis [CT abd pelvis oral and IV con] Stat FINDINGS: Lower lung zones remain essentially clear. Extensive coronary artery calcifications are present. Several low-attenuation sharply demarcated lesion seen in the right hepatic lobe, the largest of which is 8 mm. No biliary tract dilatation seen. Pancreas and spleen are unremarkable. Hiatal hernia is seen projecting into the lower mediastinum. Adrenal glands are unremarkable. Kidneys unremarkable. Vascular calcification but no aneurysm seen in the aorta. No evidence of bowel obstruction or free air. Diffusely increased. This is seen in the colon. Prostate is moderately enlarged and inhomogeneous. Small bilateral inguinal hernias containing fat only. Otherwise no pelvic mass, adenopathy or fluid is found. Multiple sclerotic vertebrae are present including L5, L4, L3 and T10. The collapse seen at this time. IMPRESSION: 1. Several subcentimeter low-attenuation lesions in the right hepatic lobe. These may represent multiple hepatic cysts. This would be better confirmed with ultrasound exam. 2. Diffuse colonic constipation without bowel obstruction. 3. Multiple blastic skeletal lesions which may indicate metastatic disease of unknown origin. Further evaluation with bone scan is recommended. CT chest with contrast [CT chest diagnostic w con] Stat FINDINGS: Both lung zones appear clear and well aerated this time. There is a 6.5 mm nodule centrally in the left upper lobe (image #15 of series 4) on the same image there is a 5.3 mm noncalcified nodule along the posterior aspect of the oblique fissure. There is a 8.0 mm pleural-based nodule along the anterior aspect of the right middle lobe (image #41 of series 4). No other acute infiltrate or edema is seen. No pleural effusion or pneumothorax is noted. No significant abnormal hilar or mediastinal mass or adenopathy is seen. Moderate coronary artery calcifications in the right and left coronary systems present. There is a sclerotic without significant collapse at the T10 level. No other definite active bony process is seen. IMPRESSION: 1. Subcentimeter bilateral pulmonary nodules. Origin is uncertain. No previous studies available to ensure stability. Further evaluation with PET/CT could be obtained at this time although they remain subcentimeter in size. Alternatively, follow up with repeat CT scan in no greater than 3 months (August 2025) could be obtained to ensure stability and evaluate growth of these nodules. Should they so significant growth, but the diagnosis will be indicated. 2. Sclerotic vertebrae at T10 of unknown origin. Correlation with the patient's history recommended. This could be further evaluated with radioisotope bone scan. 3. Moderate coronary artery calcification. Hospital Course (1) Abnormal magnetic resonance imaging of lumbar spine: Pt presented in ER w/ back pain and was found to have abnormal L-spine MRI findings. It was recommended that he is admitted to hospital and consult w/ ortho-spine. Pt did not stay and came back to ER the next day. He was seen by Dr. Delgadillo (ortho-spine surgery) and admitted to the hospital. On admission it was recommended that further imaging was obtained and so MRI of thoracic spine was obtained as well as CT chest and abdomen/pelvis. MRI Lumbar spine Impression: 1. Numerous osseous lesions, most likely due to metastatic disease 2. Scoliosis 3. Mild retrolisthesis at L1-2 and L5-S1 4. Spinal stenosis at L3-4, which may affect the traversing L4 nerve roots 5. Spinal stenosis at L4-5 with a disc protrusion that contacts the right L5 nerve root 6. Mild spinal stenosis at L2-3, without compression of the traversing nerve roots 7. Neural foramen narrowing from L1-2 through L5-S1, which may affect the exiting nerve roots 8. No sign of fracture or ligamentous injury 4 weeks of back pain in total with increasing pain 2 weeks associated with radiation of pain to the feet and decrease in ambulation MRI showed numerous osseous lesions likely metastatic Multilevel spinal stenosis Likely metastatic disease - obtained MRI of the thoracic spine with and without contrast and further testing to find out the primary source Appreciate orthospine input and recommendation Obtained CT of the chest and CT of the abdomen pelvis with and without contrast and blood test directing towards finding the cause of primary cancer - intravenous pain medications as well as oral - As per orthospine if the patient needs any sort of surgical maneuver most likely that should be done in a tertiary care center facility - ordered PSA Likely prostate cancer w/ metastases to spine PSA elevated at 53 Urology, oncology consulted Per urology (Dr. Sterling) Suspected metastatic prostate cancer PSA 53 with visible evidence of suspected blastic metastatic disease The PSA and imaging imply this diagnosis and I discussed it with the patient His exam itself of the prostate is relatively unremarkable but this is not particularly unusual in this setting Given his highly symptomatic status, I think an oncology and potentially radiation oncology consultation while inpatient would be appropriate We did discuss that with current treatments his prognosis can actually be decent with management of the disease achieved with medical treatment/ADT plus or minus other targeted therapies If necessary, a biopsy can be performed of the prostate as an outpatient Alternatively, biopsy of the spine lesion by interventional radiology may be as or more fruitful and could be performed as an inpatient We will defer starting any treatment until he sees medical oncology 05/17 Pt was seen by urologist and was asking when he can be discharged. I discussed with the pt that we recommend he talks to oncology as well and see what they recommend for further work-up. Oncologist (Dr. Arriaga) was consulted, and asked by me to possibly see the pt earlier as he wishes to be discharged. Dr. Arriaga was trying to arrange IR biopsy of spinal lesion, she did call the pt on the phone --> pt still insisted to be discharged the same day, not wanting to stay overnight, and plans to follow up as outpt w/ all the work -up. Pt has PCP follow up scheduled for Saturday. (2) Fall: Has been falling recently, due to back pain and instability in walking Pt says he has a walker now and he is stable w/ walker. In his room now ambulating without a walker. (3) Lower back pain: As above (4) High cholesterol: Has been on statin Tobacco abuse Strongly advised to quit smoking Counseling provided Total Time Total Time Spent Total Time Spent (In Minutes): 40 Discharge Plan Discharge Items Patient Disposition: Home - Self-Care Reason For Visit: INTRACTABLE BACK PAIN Discharge Diagnosis: Back pain secondary to metastatic lesions in spine - possibly from prostate cancer - diagnosis still to be fully investigated Condition on Discharge: Fair Activity: Per Instructions section Non-emergency contact: Primary Care Provider, Specialist and Oncologist Call non-emergency contact if: you have any medication questions and your symp toms worsen Follow-up/Referrals: Laverne Stewart MD [Primary Care Provider] - 05/21/25 11:00 am Diet: Regular Addtl Attending Provider Instructions: Follow up with primary care physician and oncologist (cancer doctor). The appointment with primary care physician was scheduled for you for 05/21/2025. You can follow up with [facility] oncology or Dr. Arriaga (oncologist you spoke on the phone in the hospital). It is recommended that you have further evaluation/ work-up/ possible biopsy done. Pending Studies at Discharge: Yes Studies:: [id number] tumor marker Stand-Alone Forms: My Ogone, Smoking Cessation Medications and DC Order Prescriptions: Continued aspirin 81 mg tablet,delayed release (DR/EC) 81 mg PO DAILY Patient Comments: buys OTC atorvastatin 40 mg tablet 40 mg PO DAILY Discharge Orders: Discharge Order (Routine); Ordered 05/17/25 Ordered By: Isaac Ramos/Other Patient Handouts: Fall Prevention Assessing Risk, ED Back and Neck Pain, General Admission Data Admit Date/Time: 05/16/25 10:25 Attending Provider: Isaac Denise Admit Provider: Nandini Zepeda Primary Care Provider: Laverne Stewart Other Providers: Nandini Zepeda; Franco Ramirez; Alyiah Arriaga Other Interventions: Discharge Summary Assessment (RN) Last Done: 05/17/25 14:40
--- NOTE | 2025-05-17 14:20 | Communication Note ---
Date of Service: May 17, 2025 By CMS guidelines, a determination that the admission or continued stay is not medically necessary has been made by a member of the UR committee and a physician for this hospital stay, therefore a Code 44 will be completed and the Inpatient admission will be changed to outpatient.
--- NOTE | 2025-05-19 11:33 | Electrocardiogram Report ---
Test Reason : Blood Pressure : */* mmHG Vent. Rate : 61 BPM Atrial Rate : 61 BPM P-R Int : 108 ms QRS Dur : 86 ms QT Int : 450 ms P-R-T Axes : * 29 13 degrees QTcB Int : 453 ms Sinus rhythm with short MD Otherwise normal ECG No previous ECGs available Confirmed by Chencho Tang ([id number]) on 05/19/2025 11:33:22 AM Referred By: REFERRED SELF Confirmed By: Chencho Tang
== END 2025-05-17 15:12 | disposition home or self-care (01) ==
LOC: ED 07:55 → SUATTDRO 10:25 → EDINP 10:25 → INTOOBSV 10:25 → EDINP 13:49 → 2W 14:18